=== PATIENT | female | born 1940 | race Caucasian/White ===

== ENCOUNTER 2018-04-27 09:05 | Inpatient (IN) | payer OTHER ==
--- OUTSIDE RECORDS SUMMARY | 2018-04-27 09:08 | XMS REPORT ---
:1940 Author Organization eClinicalWorks Care Team Providers Name Role Phone Felix, Na Provider Role Unavailable Allergies, Adverse Reactions, Alerts Substance Reaction Event Type penicillin rash Drug Allergy Problems Problem Type Condition Code Onset Dates Condition Status Problem Hypokalemia E87.6 Active Problem Anxiety F41.9 Active Problem Hyperlipidemia, unspecified E78.5 Active Problem Supplemental oxygen dependent Z99.81 Active Problem Ventral hernia K43.9 Active Problem Unsteady gait R26.81 Active Problem Nicotine dependence F17.200 Active Problem Hypertension I10 Active Problem Chronic obstructive pulmonary J44.9 Active disease, unspecified Problem Acute diarrhea R19.7 Active Assessment Unsteady gait R26.81 Active Assessment Collagenous colitis K52.831 Active Assessment Influenza vaccine administered Z23 Active Assessment Supplemental oxygen dependent Z99.81 Active Assessment Hyperlipidemia, unspecified E78.5 Active Assessment Hypertension I10 Active Assessment Anxiety F41.9 Active Assessment Chronic obstructive pulmonary J44.9 Active disease, unspecified Problem Collagenous colitis K52.831 Active Medications Medication Code Code Instructions Start End Status Dosage System Date Date Paroxetine HCl [facility] 36121909717 20 MG Orally Active 1 tablet Once a day in the morning Tricor [facility] 91794313078 145 MG Orally Active 1 tablet Once a day with food Symbicort [facility] 50877119408 160-4.5 MCG/ACT Sept Active 2 puffs Inhalation 27, Twice a day 2018 Paxil [facility] 50678101786 20 MG Orally Cathy Active 1 tablet Once a day 09, in the 2018 morning Combivent [facility] 54674454923 20MCG /100 MCG Sept Active 1 puff Respimat Oral Inhalation 27, 4 times daily, 2018 not to exceed 6 in 24 hrs Lomotil [facility] [address]-32 0.025-2.5 Active 5 ml as MG/5ML Orally needed Four times a day Clonidine HCl [facility] 31866465515 0.1 MG Orally Active 1 tablet twice a day as needed if BP > 160/90 Cholestyramine [facility] 10023820009 4 GM/DOSE Active 1 packet Orally Twice a mixed with day water or non-carbon ated drink Symbicort [facility] 86137418421 160-4.5 MCG/ACT Active TAKE 2 PUFFS BY MOUTH TWICE A DAY Zetia [facility] 45149398510 10 MG Orally Active 1 tablet Once a day Amlodipine [facility] 43751451903 10/40MG orally Active TAKE 1 Besy-Benazepril once a day CAPSULE HCl DAILY Metoprolol [facility] 70895835591 200 MG Active TAKE 1 Succinate ER TABLET DAILY Paroxetine HCl [facility] 73530505350 20 MG Orally July 08, Active 1 tablet Once a day 2017 in the morning Restasis [facility] 42686004222 0.05 % Active 1 drop Ophthalmic into Twice a day affected eye Toprol XL [facility] [address]-98 200 MG Orally Active 1 tablet Once a day Results No Known Results Immunizations Vaccine Administration Date FluAD Dec 02, 2017 Summary Purpose eClinicalWorks Submission
--- OUTSIDE RECORDS SUMMARY | 2018-04-27 09:08 | XMS REPORT ---
:1940 Author Organization [employer]Works Care Team Providers Name Role Phone Felix, Na Provider Role Unavailable Allergies No Known Allergies Problems Problem Type Condition Code Onset Dates Condition Status Problem Hypokalemia E87.6 Active Problem Anxiety F41.9 Active Problem Hyperlipidemia, unspecified E78.5 Active Problem Supplemental oxygen dependent Z99.81 Active Problem Ventral hernia K43.9 Active Problem Unsteady gait R26.81 Active Problem Nicotine dependence F17.200 Active Problem Hypertension I10 Active Problem Chronic obstructive pulmonary J44.9 Active disease, unspecified Problem Acute diarrhea R19.7 Active Assessment Anxiety F41.9 Active Assessment Chronic obstructive pulmonary J44.9 Active disease, unspecified Problem Collagenous colitis K52.831 Active Medications Medication Code Code Instructions Start End Status Dosage System Date Date Combivent [facility] 90111360150 20MCG /100 MCG Sept Active 1 puff Respimat Oral Inhalation 27, 4 times daily, 2018 not to exceed 6 in [address] [facility] 77638142680 160-4.5 MCG/ACT Sept Active 2 puffs Inhalation Twice 27, a day [address] [facility] 91702020664 20 MG Orally Active 1 tablet Once a day in the morning Results No Known Results Summary Purpose eClinicalWorks Submission
--- OUTSIDE RECORDS SUMMARY | 2018-04-27 09:08 | XMS REPORT ---
:1940 Author Organization [employer]Works Care Team Providers Name Role Phone Felix, Na Provider Role Unavailable Allergies No Known Allergies Problems Problem Type Condition Code Onset Dates Condition Status Problem Hypokalemia E87.6 Active Problem Anxiety F41.9 Active Problem Hyperlipidemia, unspecified E78.5 Active Problem Collagenous colitis K52.831 Active Problem Supplemental oxygen dependent Z99.81 Active Problem Ventral hernia K43.9 Active Problem Unsteady gait R26.81 Active Problem Nicotine dependence F17.200 Active Problem Hypertension I10 Active Problem Chronic obstructive pulmonary J44.9 Active disease, unspecified Problem Acute diarrhea R19.7 Active Medications No Known Medications Results No Known Results Summary Purpose eClinicalWorks Submission
[2018-04-27] MEDS ORDERED: METHYLPREDNISOLONE 125 MG INJ ONE (09:44)
[2018-04-27] MEDS ORDERED: ALBUTEROL 2.5 MG/3 ML NEB SOL ONE (09:44)
[2018-04-27] MEDS ORDERED: IPRATROPIUM BROM 0.5MG/2.5ML ONE (09:44)
[2018-04-27] MEDS ORDERED: FAMOTIDINE 20 MG/2 ML VIAL IV ONE (09:45)
[2018-04-27] MEDS ORDERED: CEFTRIAXONE/SWI 1gm 1 GM/10 ML SYR ONE (09:45)
[2018-04-27 09:58] LABS: Absolute Lymphocytes (CBC) 1.2 K/uL (0.7-4.9); Absolute Monocytes 0.9 K/uL (0.1-1.3); Absolute Neutrophil 3.7 K/uL (1.8-8.0); Basophils % 0.7 % (0-1.3); Hematocrit 45.1 % (36.0-45.0); Lymphocytes % 20.1 % (15.3-44.8); MPV 9.3 fL (7.6-11.3); Monocytes % 15.1 % (3.3-12.3); RBC Red Blood Cell Count 4.49 M/uL (3.86-4.86)
[2018-04-27] MEDS ORDERED: AZITHROMYCIN IV 500 MG in NA CHLORIDE 0.9% 250 ML IVPB ONE (10:15)
[2018-04-27 10:17] LABS: Protime INR 0.95
[2018-04-27 10:56] LABS: Urine Blood TRACE (NEG); Urine Glucose NEGATIVE (NEG); Urine Protein 2+ (NEG); Urine Specific Gravity >1.030 (1.005-1.030); Urine pH 5.5 (5.0-7.0)
--- NOTE | 2018-04-27 10:58 | RAD REPORT ---
EXAM DESCRIPTION: RAD - Chest Single View - 04/27/2018 10:27 am CLINICAL HISTORY: COPD;Cough Chest pain. COMPARISON: CHEST PA AND LAT 2 VIEW dated 05/20/2012; CHEST PA AND LAT 2 VIEW dated 09/24/2007; CHEST PA AND LAT 2 VIEW dated 07/10/2005 FINDINGS: Portable technique limits examination quality. Bilateral interstitial markings are prominent which can be seen in a viral pneumonitis or chronic bro nchitis. Underlying emphysematous changes are suspected. No focal consolidation typical of pneumonia. The heart is normal in size. No displaced fractures.
--- NOTE | 2018-04-27 11:17 | ER ---
Nurse's Notes [facility] Name: Cristel Greene Age: 78 yrs Sex: Female : 1940 Arrival Date: 04/27/2018 Time: 09:06 Bed 16 Private MD: Judith Felix Diagnosis: Chronic obstructive pulmonary disease with (acute) exacerbation;Hypoxemia;Tobacco use;Tobacco abuse counseling Presentation: 04/27 09:16 Presenting complaint: Patient states: SOB X 5 days, +cough, hx of COPD, also feeling iw weak and shaky. Transition of care: patient was not received from another setting of care. Onset of symptoms was April 22, 2018. Risk Assessment: Do you want to hurt yourself or someone else? Patient reports no desire to harm self or others. Initial Sepsis Screen: Does the patient meet any 2 criteria? RR > 20 per min. Does the patient have a suspected source of infection? No. Patient's initial sepsis screen is negative. Care prior to arrival: None. 09:16 Method Of Arrival: Wheelchair iw 09:16 Acuity: QEUTA 2 iw Historical: - Allergies: 09:22 Sulfa (Sulfonamide Antibiotics); iw 09:22 PENICILLINS; iw - Home Meds: 09:20 paroxetine HCl 20 mg oral tab 1 tab once daily [Active]; amlodipine 10 mg tab 1 tab iw once daily [Active]; benazepril 40 mg oral tab 1 tab once daily [Active]; Symbicort 160-4.5 mcg/actuation inhalation HFAA 2 puffs 2 times per day [Active]; Combivent 18-103 mcg/actuation Inhl aero 2 puffs 4 times per day [Active]; metoprolol succinate 200 mg oral Tb24 1 tab once daily [Active]; Cholestyramine Light oral oral daily [Active]; - PMHx: 09:20 COPD; Hypertension; iw - PSHx: 09:20 None; iw - Immunization history:: Adult Immunizations up to date. - Social history:: Smoking status: Patient uses tobacco products, smokes one-half pack cigarettes per day. - Ebola Screening: : Patient negative for fever greater than or equal to 101.5 degrees Fahrenheit, and additional compatible Ebola Virus Disease symptoms Patient denies exposure to infectious person Patient denies travel to an Ebola-affected area in the 21 days before illness onset No symptoms or risks identified at this time. - Family history:: not pertinent. Screenin:45 Abuse screen: Denies threats or abuse. Denies injuries from another. Nutritional jl7 screening: No deficits noted. Tuberculosis screening: No symptoms or risk factors identified. Fall Risk IV access (20 points). Total Pepper Fall Scale indicates No Risk (0-24 pts). Assessment: 09:20 General: Appears in no apparent distress. uncomfortable, Behavior is calm, cooperative, jl7 appropriate for age. Pain: Denies pain. Neuro: Level of Consciousness is awake, alert, obeys commands, Oriented to person, place, time, situation. Cardiovascular: Denies chest pain, Patient's skin is warm and dry. Rhythm is sinus rhythm Chest pain is denied. Respiratory: Respiratory: Airway is patent Respiratory effort is even, labored, shallow, using tripod position, Respiratory pattern is symmetrical, tachypnea Breath sounds are diminished bilaterally. Breath sounds with wheezes bilaterally. GI: No signs and/or symptoms were reported involving the gastrointestinal system. : Reports urinary frequency, Denies burning with urination. EENT: No signs and/or symptoms were reported regarding the EENT system. Derm: Skin is pink, warm \T\ dry. Musculoskeletal: No signs and/or symptoms reported regarding the musculoskeletal system. 10:00 Reassessment: Patient appears in no apparent distress at this time. Patient and/or jl7 family updated on plan of care and expected duration. Pain level reassessed. Patient is alert, oriented x 3, equal unlabored respirations, skin warm/dry/pink. 11:08 Reassessment: Dr Strange at bedside discussing plan of care. jl7 12:00 Reassessment: Patient appears in no apparent distress at this time. No changes from jl7 previously documented assessment. Patient and/or family updated on plan of care and expected duration. Pain level reassessed. Patient is alert, oriented x 3, equal unlabored respirations, skin warm/dry/pink. Vital Signs: 09:21 BP 167 / 77; Pulse 82; Resp 26 S; Temp 98.2(O); Pulse Ox 57% on R/A; Weight 55.79 kg; iw Height 5 ft. 5 in. (165.10 cm); Pain 0/10; 09:22 Pulse Ox 95% on 4 lpm NC; iw 09:30 BP 160 / 69; Pulse 77; Resp 31; Pulse Ox 97% on 4 lpm NC; jl7 09:45 BP 160 / 69; Pulse 77; Resp 29; Pulse Ox 100% on Nebulizer Mask; jl7 10:31 BP 166 / 84; Pulse 90; Resp 21 S; Pulse Ox 95% on 2 lpm NC; jl7 11:30 BP 135 / 60; Pulse 76; Resp 22 S; Pulse Ox 93% on 2 lpm NC; jl7 12:30 BP 140 / 70; Pulse 75; Resp 23; Pulse Ox 93% on 2 lpm NC; jl7 09:21 Body Mass Index 20.47 (55.79 kg, 165.10 cm) iw ED Course: 09:06 Patient arrived in ED. rg4 09:06 Judith Felix MD is Private Physician. rg4 09:12 Daniele Davies RN is Primary Nurse. jl7 09:17 Dino Strange MD is Attending Physician. butch 09:17 Triage completed. iw 09:20 Initial lab(s) drawn, by ED staff, sent to lab. by Daniele Davies RN. Inserted saline dh3 lock: 20 gauge in left forearm, using aseptic technique. Blood collected. 09:20 First set of blood cultures drawn by ED staff. dh3 09:20 Patient has correct armband on for positive identification. Placed in gown. Bed in low jl7 position. Call light in reach. Side rails up X2. potline monitor on. Pulse ox on. NIBP on. Warm blanket given. 09:20 Arm band placed on right wrist. jl7 09:37 Flu and/or RSV swab sent to lab. lactate drawn by [facility] and sent to lab. dh3 09:40 Second set of blood cultures drawn by ED staff. dh3 10:05 Straight cath inserted, using sterile technique, 15Fr Returned 15cc. Patient tolerated dh3 well. 10:27 XRAY Chest (1 view) In Process Unspecified. EDMS 10:51 Urine Culture Sent. sv 11:15 Leslie Kenny MD is Hospitalizing Provider. butch 11:21 Mishel Garcia MD is Hospitalizing Provider. butch 12:46 No provider procedures requiring assistance completed. Patient admitted, IV remains in jl7 place. intact, No redness/swelling at site. Administered Medications: 09:30 Drug: Albuterol - atroVENT (3:1) (2.5 mg - 0.5 mg) 3 ml Route: Nebulizer; jl7 10:24 Follow up: Response: No adverse reaction 7 09:30 Drug: Pepcid 20 mg Route: IVP; Site: left forearm; jl7 10:24 Follow up: Response: No adverse reaction jl7 09:31 Drug: SOLU-Medrol 125 mg Route: IVP; Site: left forearm; jl7 10:23 Follow up: Response: No adverse reaction jl7 09:35 Drug: Rocephin 1 grams Route: IV; Rate: bolus; Site: left forearm; jl7 09:38 Follow up: Response: No adverse reaction; IV Status: Completed infusion jl7 10:00 Not Given (Duplicate Order): Rocephin - (cefTRIAXone) 1 grams IVPB once over 30 mins; jl7 (mix in 50 mL NS) 10:23 Drug: Zithromax 500 mg Route: IVPB; Infused Over: 1 hrs; Site: left forearm; jl7 11:23 Follow up: Response: No adverse reaction; IV Status: Completed infusion jl7 Outcome: 11:17 Decision to Hospitalize by Provider. butch 12:45 Admitted to Tele accompanied by tech, family with patient, via stretcher, room 419, jl7 with chart, Report called to ARNAUD Mark 12:45 Condition: stable 12:45 Discharge instructions given to patient, family, Instructed on the need for admit, Demonstrated understanding of instructions. 12:47 Patient left the ED. jl7 Signatures: Dispatcher [employer] EDJulia Rubio RN RN sv Anderson, Corey, MD MD cha Williams, Irene, RN RN iw Garcia, Rubi 4 Daniele Davies RN RN jl7 Natalie Burris 3 Corrections: (The following items were deleted from the chart) 09:22 09:20 Allergies: No Known Allergies; [facility] 10:00 09:30 Pepcid 20 mg IVP in right forearm jl7 jl7
--- NOTE | 2018-04-27 11:18 | EDPHYS ---
Physician Documentation [facility] Name: Cristel Greene Age: 78 yrs Sex: Female : 1940 Arrival Date: 04/27/2018 Time: 09:06 Bed 16 Private MD: Judith Felix ED Physician Dino Strange HPI: 04/27 11:11 This 78 yrs old Female presents to ER via Wheelchair with complaints of butch Breathing Difficulty. 11:11 The patient has shortness of breath with light activity. Onset: The symptoms/episode butch began/occurred 3 day(s) ago. Duration: The symptoms are continuous, and are steadily getting worse. The patient's shortness of breath is aggravated by coughing, supine position. Associated signs and symptoms: The patient has no apparent associated signs or symptoms. Severity of symptoms: At their worst the symptoms were mild in the emergency department the symptoms are unchanged. The patient has not experienced similar symptoms in the past. Historical: - Allergies: 09:22 Sulfa (Sulfonamide Antibiotics); iw 09:22 PENICILLINS; iw - Home Meds: 09:20 paroxetine HCl 20 mg oral tab 1 tab once daily [Active]; amlodipine 10 mg tab 1 tab iw once daily [Active]; benazepril 40 mg oral tab 1 tab once daily [Active]; Symbicort 160-4.5 mcg/actuation inhalation HFAA 2 puffs 2 times per day [Active]; Combivent 18-103 mcg/actuation Inhl aero 2 puffs 4 times per day [Active]; metoprolol succinate 200 mg oral Tb24 1 tab once daily [Active]; Cholestyramine Light oral oral daily [Active]; - PMHx: 09:20 COPD; Hypertension; iw - PSHx: 09:20 None; iw - Immunization history:: Adult Immunizations up to date. - Social history:: Smoking status: Patient uses tobacco products, smokes one-half pack cigarettes per day. - Ebola Screening: : Patient negative for fever greater than or equal to 101.5 degrees Fahrenheit, and additional compatible Ebola Virus Disease symptoms Patient denies exposure to infectious person Patient denies travel to an Ebola-affected area in the 21 days before illness onset No symptoms or risks identified at this time. - Family history:: not pertinent. ROS: 11:11 Constitutional: Negative for fever, chills, and weight loss, Eyes: Negative for injury, butch pain, redness, and discharge, ENT: Negative for injury, pain, and discharge, Neck: Negative for injury, pain, and swelling, Cardiovascular: Negative for chest pain, palpitations, and edema, Abdomen/GI: Negative for abdominal pain, nausea, vomiting, diarrhea, and constipation, Back: Negative for injury and pain, : Negative for injury, bleeding, discharge, and swelling, MS/Extremity: Negative for injury and deformity, Skin: Negative for injury, rash, and discoloration, Neuro: Negative for headache, weakness, numbness, tingling, and seizure, Psych: Negative for depression, anxiety, suicide ideation, homicidal ideation, and hallucinations, Allergy/Immunology: Negative for hives, rash, and allergies, Endocrine: Negative for neck swelling, polydipsia, polyuria, polyphagia, and marked weight changes, Hematologic/Lymphatic: Negative for swollen nodes, abnormal bleeding, and unusual bruising. 11:11 Respiratory: Positive for cough, shortness of breath, wheezing, inspiratory, expiratory. Exam: 11:11 Constitutional: This is a well developed, well nourished patient who is awake, alert, butch and in no acute distress. Head/Face: Normocephalic, atraumatic. Eyes: Pupils equal round and reactive to light, extra-ocular motions intact. Lids and lashes normal. Conjunctiva and sclera are non-icteric and not injected. Cornea within normal limits. Periorbital areas with no swelling, redness, or edema. ENT: Nares patent. No nasal discharge, no septal abnormalities noted. Tympanic membranes are normal and external auditory canals are clear. Oropharynx with no redness, swelling, or masses, exudates, or evidence of obstruction, uvula midline. Mucous membranes moist. Neck: Trachea midline, no thyromegaly or masses palpated, and no cervical lymphadenopathy. Supple, full range of motion without nuchal rigidity, or vertebral point tenderness. No Meningismus. Chest/axilla: Normal chest wall appearance and motion. Nontender with no deformity. No lesions are appreciated. Cardiovascular: Regular rate and rhythm with a normal S1 and S2. No gallops, murmurs, or rubs. Normal PMI, no JVD. No pulse deficits. Abdomen/GI: Soft, non-tender, with normal bowel sounds. No distension or tympany. No guarding or rebound. No evidence of tenderness throughout. Back: No spinal tenderness. No costovertebral tenderness. Full range of motion. Female : Normal external genitalia. Skin: Warm, dry with normal turgor. Normal color with no rashes, no lesions, and no evidence of cellulitis. MS/ Extremity: Pulses equal, no cyanosis. Neurovascular intact. Full, normal range of motion. Neuro: Awake and alert, GCS 15, oriented to person, place, time, and situation. Cranial nerves II-XII grossly intact. Motor strength 5/5 in all extremities. Sensory grossly intact. Cerebellar exam normal. Normal gait. Psych: Awake, alert, with orientation to person, place and time. Behavior, mood, and affect are within normal limits. 11:11 Respiratory: mild respiratory distress is noted, Respirations: labored breathing, that is mild, Breath sounds: decreased breath sounds, rhonchi, stridor, is not appreciated, + upper airway congestion. wheezing: that is moderate. Vital Signs: 09:21 BP 167 / 77; Pulse 82; Resp 26 S; Temp 98.2(O); Pulse Ox 57% on R/A; Weight 55.79 kg; iw Height 5 ft. 5 in. (165.10 cm); Pain 0/10; 09:22 Pulse Ox 95% on 4 lpm NC; iw 09:30 BP 160 / 69; Pulse 77; Resp 31; Pulse Ox 97% on 4 lpm NC; jl7 09:45 BP 160 / 69; Pulse 77; Resp 29; Pulse Ox 100% on Nebulizer Mask; jl7 10:31 BP 166 / 84; Pulse 90; Resp 21 S; Pulse Ox 95% on 2 lpm NC; jl7 11:30 BP 135 / 60; Pulse 76; Resp 22 S; Pulse Ox 93% on 2 lpm NC; jl7 12:30 BP 140 / 70; Pulse 75; Resp 23; Pulse Ox 93% on 2 lpm NC; jl7 09:21 Body Mass Index 20.47 (55.79 kg, 165.10 cm) MDM: 09:17 Patient medically screened. [facility] 11:11 Data reviewed: vital signs, nurses notes, lab test result(s), EKG, radiologic studies, [facility] plain films. 04/27 09:25 Order name: Basic Metabolic Panel [facility] 04/27 09:25 Order name: CBC with Diff [facility] 04/27 09:25 Order name: LFT's [facility] 04/27 09:25 Order name: Magnesium [facility] 04/27 09:25 Order name: NT PRO-BNP [facility] 04/27 09:25 Order name: PT-INR; Complete Time: 11:03 [facility] 04/27 09:25 Order name: Troponin (emerg Dept Use Only) [facility] 04/27 09:25 Order name: Blood Culture Adult (2) [facility] 04/27 09:25 Order name: Procalcitonin [facility] 04/27 09:25 Order name: Lactate; Complete Time: 11:03 [facility] 04/27 09:25 Order name: Influenza Screen (a \T\ B); Complete Time: 11:03 [facility] 04/27 10:21 Order name: Urine Culture 3 04/27 10:22 Order name: Urine Culture EDND 04/27 10:24 Order name: Urine Dipstick--Ancillary (enter results); Complete Time: 11:03 04/27 09:25 Order name: XRAY Chest (1 view); Complete Time: 11:03 [facility] 04/27 09:25 Order name: EKG; Complete Time: 09:27 [facility] 04/27 09:25 Order name: Cardiac monitoring; Complete Time: 09:46 [facility] 04/27 09:25 Order name: EKG - Nurse/Tech; Complete Time: 09:46 [facility] 04/27 09:25 Order name: IV Saline Lock; Complete Time: 09:46 [facility] 04/27 09:25 Order name: Labs collected and sent; Complete Time: 09:46 [facility] 04/27 09:25 Order name: O2 Per Protocol; Complete Time: 09:46 [facility] 04/27 09:25 Order name: O2 Sat Monitoring; Complete Time: 09:46 [facility] 04/27 11:40 Order name: CBC Smear Scan EDMS Administered Medications: 09:30 Drug: Albuterol - atroVENT (3:1) (2.5 mg - 0.5 mg) 3 ml Route: Nebulizer; jl7 10:24 Follow up: Response: No adverse reaction 7 09:30 Drug: Pepcid 20 mg Route: IVP; Site: left forearm; jl7 10:24 Follow up: Response: No adverse reaction 7 09:31 Drug: SOLU-Medrol 125 mg Route: IVP; Site: left forearm; jl7 10:23 Follow up: Response: No adverse reaction jl7 09:35 Drug: Rocephin 1 grams Route: IV; Rate: bolus; Site: left forearm; jl7 09:38 Follow up: Response: No adverse reaction; IV Status: Completed infusion jl7 10:00 Not Given (Duplicate Order): Rocephin - (cefTRIAXone) 1 grams IVPB once over 30 mins; jl7 (mix in 50 mL NS) 10:23 Drug: Zithromax 500 mg Route: IVPB; Infused Over: 1 hrs; Site: left forearm; jl7 11:23 Follow up: Response: No adverse reaction; IV Status: Completed infusion jl7 Disposition: 04/27/18 11:17 Hospitalization ordered by Mishel Garcia for Inpatient Admission. Preliminary diagnosis are Chronic obstructive pulmonary disease with (acute) exacerbation, Hypoxemia, Tobacco use, Tobacco abuse counseling. - Bed requested for Telemetry/MedSurg (Inpatient). - Status is Inpatient Admission. jl7 - Condition is Fair. - Problem is new. - Symptoms have improved. UTI on Admission? No Signatures: Dispatcher [employer] EDMS Mandie Gan Corey, MD MD cha Williams, Irene, RN RN Daniele Davies RN RN jl7 Corrections: (The following items were deleted from the chart) 09:22 09:20 Allergies: No Known Allergies; [facility] 11:21 11:17 Hospitalization Ordered by Leslie Kenny MD for Inpatient Admission. Preliminary butch diagnosis is Chronic obstructive pulmonary disease with (acute) exacerbation; Hypoxemia; Tobacco use; Tobacco abuse counseling. Bed requested for Telemetry/MedSurg (Inpatient). Status is Inpatient Admission. Condition is Fair. Problem is new. Symptoms have improved. UTI on Admission? No. butch 12:06 11:21 04/27/2018 11:17 Hospitalization Ordered by Mishel Garcia MD for Inpatient bd Admission. Preliminary diagnosis is Chronic obstructive pulmonary disease with (acute) exacerbation; Hypoxemia; Tobacco use; Tobacco abuse counseling. Bed requested for Telemetry/MedSurg (Inpatient). Status is Inpatient Admission. Condition is Fair. Problem is new. Symptoms have improved. UTI on Admission? No. butch 12:47 12:06 04/27/2018 11:17 Hospitalization Ordered by Mishel Garcia MD for Inpatient jl7 Admission. Preliminary diagnosis is Chronic obstructive pulmonary disease with (acute) exacerbation; Hypoxemia; Tobacco use; Tobacco abuse counseling. Bed requested for Telemetry/MedSurg (Inpatient). Status is Inpatient Admission. Condition is Fair. Problem is new. Symptoms have improved. UTI on Admission? No. bd
[2018-04-27 11:46] LABS: Blood Morphology Comment NOT SEEN (NOT SEEN); Platelet Estimate ADEQ; Urine White Blood Cell Casts OK
[2018-04-27 11:52] LABS: ALT/SGPT 27 U/L (12-78); AST/SGOT 29 U/L (15-37); Albumin 3.4 g/dL (3.4-5.0); Alkaline Phosphatase 98 U/L (45-117); BUN Blood Urea Nitrogen 19 mg/dL (7-18); Bicarbonate 32 mmol/L (21-32); Bilirubin Direct < 0.1 mg/dL (0-0.2); Bilirubin Total 0.4 mg/dL (0.2-1.0); Glucose Level 158 mg/dL (74-106); Magnesium 1.8 mg/dL (1.8-2.4); NT PRO-BNP 325 pg/mL (<450); Potassium 3.8 mmol/L (3.5-5.1); Protein, Total 7.5 g/dL (6.4-8.2); Sodium Level 138 mmol/L (136-145); Troponin (Emerg Dept Use Only) < 0.02 ng/mL (0.0-0.045)
[2018-04-27] MEDS ORDERED: ONDANSETRON 4 MG/2 ML VIAL IV PRN (13:01)
[2018-04-27] MEDS ORDERED: ACETAMINOPHEN 500 MG TAB PO PRN (13:01)
[2018-04-27] MEDS: ALBUTEROL 2.5 MG/3 ML NEB SOL NEB SCH ×2 (14:17→20:20)
[2018-04-27] MEDS: IPRATROPIUM BROM 0.5MG/2.5ML NEB SCH ×2 (14:17→20:20)
[2018-04-27] MEDS ORDERED: LORazepam 2 MG/ML VIAL IV PRN (16:49)
[2018-04-27] MEDS: METHYLPREDNISOLONE 40 MG INJ IV SCH (17:33)
[2018-04-27] MEDS: ENOXAPARIN 40 MG/0.4 ML SQ SCH (17:33)
--- NOTE | 2018-04-27 18:40 | EKG ---
Test Date: 2018-04-27 Test Time: 09:37:15 Chef Broiler Or Fry: RYAN MEASUREMENT RESULTS: Intervals: Rate: 77 AR: 148 QRSD: 70 QT: 388 QTc: 439 Smoot: P: 63 AR: 148 QRS: 76 T: 76 INTERPRETIVE STATEMENTS: Normal sinus rhythm Nonspecific ST abnormality Abnormal ECG Compared to ECG 08/13/2012 11:14:14 ST (T wave) deviation now present Electronically Signed On 04-27-18 18:39:45 [employer] by Johnson Duran
[2018-04-28] MEDS: METHYLPREDNISOLONE 40 MG INJ IV SCH ×3 (01:13→17:46)
[2018-04-28] MEDS: ALBUTEROL 2.5 MG/3 ML NEB SOL NEB SCH ×4 (01:50→21:32)
[2018-04-28] MEDS: IPRATROPIUM BROM 0.5MG/2.5ML NEB SCH ×4 (01:50→19:40)
--- NOTE | 2018-04-28 03:27 | HP ---
Date of Admission: 04/27/2018 Chief Complaint: Shortness of breath. Code Status: Full code. Sister is the medical power of corporate attorney. History Of Present Illness: The patient is a 78-year-old female who has a past medical history of [place] PD, on home oxygen, who continues to smoke about 5 cigarettes per day, depression, hypertension, who was in her usual state of health until the day prior to admission when the patient had worsening symp toms of shortness of breath. The patient states her shortness of breath has gotten worse over the st couple of days, more than her usual. The patient denies any significant amount of cough. No sput um production. No fevers or chills. No ill contacts. The patient does have a history of fibrotic l ying disease as well. Came to the ER. Her symptoms were constant, moderate, progressively worsening, found to be hypoxic. She was started on breathing treatments and was started on supplemental oxygen . The patient's workup revealed normal white blood cell count. Procalcitonin was negative. Her inf luenza screen was also negative. The patient was then referred for admission. When seen in the ER, she was awake, alert, oriented x3, in some mild respiratory distress. Past Medical History: Hypertension, generalized anxiety disorder, major depressive disorder, COPD, a nd fibrotic lung disease. Past Surgical History: None. Allergies: TO PENICILLIN AND SULFA. Medications: List reviewed. Social History: The patient smokes 5 cigarettes per day. Used to smoke half a pack per day for over 30 years. The patient does drink several glasses of wine daily. Family History: Mom's side has heart problems. No other specifics were given even despite elicitati on. Review of Systems: An 11-point system reviewed and negative except as per HPI. Physical Examination: Vital Signs: Temperature 98.2, heart rate 82, blood pressure 167/77, respirations 26, and O2 of 57% on room air, improved to 95% on 4 L. General: Awake, alert, oriented x3. Elderly female, in mild respiratory distress. Frail, cachectic . BMI 20. HEENT: Normocephalic, atraumatic. PERRLA. EOMI. Dry mucous membranes. Oropharynx is clear. Conj unctivae are anicteric. Neck: Supple. No JVD. Trachea midline. CV: S1, S2. Regular rate and rhythm. Peripheral pulses are present. Respiratory: Diminished breath sounds. Wheezing is heard throughout. The patient is tachypneic wit h use of accessory muscles. Gastrointestinal: Abdomen is soft, nontender, and nondistended. Positive bowel sounds. No guarding or rigidity. Extremities: No clubbing, cyanosis, or edema. No calf tenderness. Neurologic: Cranial nerves 2 through 12 are intact grossly. No focal neurological deficit. Speech is normal, and sensation is intact to light touch. Skin: No rashes. Normal skin turgor. Psychiatric: Mood is anxious. Affect is congruent with mood. Insight and judgment are fair. Laboratory Data: Sodium 138, potassium 3.8, chloride 99, CO2 of 32, BUN 19, creatinine 0.64, glucose 158, lactate 1.1, calcium 8.7, and magnesium 1.8. Troponin less than 0.02. Procalcitonin 0.05. IN R 0.95. WBC 6.2, H and H 15 and 45.1, platelets 237, and neutrophils 60%. UA negative. Influenza s creen negative. Chest x-ray, personally reviewed, shows bilateral interstitial markings, prominent, which can be seen in a viral pneumonitis or chronic bronchitis. Underlying emphysematous changes are suspected. No focal consolidations typical of pneumonia. Heart normal in size. No displaced fract ures. Assessment And Plan: A 78-year-old female with; 1.Acute chronic obstructive pulmonary disease exacerbation. We will continue with IV steroids and b reathing treatments around the clock as well as prophylactic antibiotics for bronchitis. 2.Chronic respiratory failure. The patient is on supplemental oxygen with hypoxia. 3.Fibrotic lung disease. 4.Essential hypertension. Resume home medications as appropriate. 5.Generalized anxiety disorder. We will continue home medications as appropriate. 6.Nicotine dependence with cigarette smoking, continuous. The patient has been counseled. 7.Alcohol dependence. The patient drinks wine daily. We will start on multivitamins and Ativan p.r .n. for alcohol withdrawal. 8.Deep vein thrombosis prophylaxis with Lovenox. Plan: Admit the patient to Med-Surg, place as inpatient. Length of stay; greater than 2 midnights. We will have PT evaluation done as the patient did state that she feels wobbly on her feet. No rece nt falls. SA/MODL Voice ID: [id number]
[2018-04-28 06:11] LABS: Absolute Lymphocytes (CBC) 0.6 K/uL (0.7-4.9); Absolute Monocytes 0.3 K/uL (0.1-1.3); Absolute Neutrophil 1.9 K/uL (1.8-8.0); Basophils % 0.2 % (0-1.3); MPV 9.5 fL (7.6-11.3); RBC Red Blood Cell Count 4.13 M/uL (3.86-4.86)
[2018-04-28 06:21] LABS: BUN Blood Urea Nitrogen 17 mg/dL (7-18); Bicarbonate 33 mmol/L (21-32); Glucose Level 175 mg/dL (74-106); Magnesium 1.9 mg/dL (1.8-2.4); Potassium 3.9 mmol/L (3.5-5.1); Sodium Level 138 mmol/L (136-145)
[2018-04-28 08:25] LABS: Blood Morphology Comment NOT SEEN (NOT SEEN); Platelet Estimate ADEQ
[2018-04-28] MEDS ORDERED: AMLODIPINE BESYLATE PO SCH (09:00)
[2018-04-28] MEDS ORDERED: POTASSIUM 25 MEQ EFFERV TAB PO ONE (09:00)
[2018-04-28] MEDS ORDERED: HOME MED 1 EA UNK (Paroxetine Hcl [Paroxetine Hcl] 20 MG) PO SCH (09:00)
[2018-04-28] MEDS ORDERED: BENAZEPRIL PO SCH (09:00)
[2018-04-28] MEDS ORDERED: Budesonide/Formoterol Fumarate (Symbicort) 160-4.5 Mcg Inhaler IH SCH (09:00)
[2018-04-28] MEDS ORDERED: [UNRECOGNIZED DRUG - OTHER] PO SCH (09:00)
[2018-04-28] MEDS ORDERED: AZITHROMYCIN IV 500 MG in NA CHLORIDE 0.9% 250 ML IVPB SCH (09:00)
[2018-04-28] MEDS ORDERED: HOME MED 1 EA UNK (Metoprolol Succinate [Toprol Xl] 200 MG) PO SCH (09:00)
[2018-04-28] MEDS: PARoxetine HCl 10 MG TAB PO SCH (11:32)
[2018-04-28] MEDS: FOLIC ACID 1 MG TABLET PO SCH (11:32)
[2018-04-28] MEDS: METOPROLOL XL 100 MG TAB PO SCH (11:32)
[2018-04-28] MEDS: AMLODIPINE 10 MG TAB PO SCH (11:33)
[2018-04-28] MEDS: THIAMINE HCL 100 MG TABLET PO SCH (11:33)
[2018-04-28] MEDS: BENAZEPRIL 20 MG TAB PO SCH (11:37)
[2018-04-28] MEDS: ENOXAPARIN 40 MG/0.4 ML SQ SCH (17:45)
--- NOTE | 2018-04-28 18:44 | P.PN ---
Subjective Date of Service: 04/28/18 Subjective: No C/O voiced, Improving Patient seen and examined at bedside. No family at bedside. Chart reviewed and case discussed with nursing staff. Review of Systems 10-point ROS is otherwise unremarkable Physical Examination - Vital Signs Temperature: 98.1 F Blood Pressure: 152/71 Pulse: 82 Respirations: 20 Pulse Ox (%): 95 - Physical Exam General: Alert, In no apparent distress, Oriented x3 HEENT: Atraumatic, PERRLA, EOMI Neck: Supple, JVD not distended Respiratory: Crackles/rales, Expiratory wheezes, Inspiratory wheezes Cardiovascular: Regular rate/rhythm, Normal S1 S2 Gastrointestinal: Normal bowel sounds, No tenderness Musculoskeletal: No tenderness Integumentary: No rashes Neurological: Normal speech, Normal tone, Normal affect Lymphatics: No axilla or inguinal lymphadenopathy Assessment And Plan - Plan A 78-year-old female with; Acute chronic obstructive pulmonary disease exacerbation. We will continue with IV steroids and breathing treatments around the clock as well as prophylactic antibiotics for bronchitis. Chronic respiratory failure. The patient is on supplemental oxygen with hypoxia. Fibrotic lung disease. Essential hypertension. Resume home medications as appropriate. Generalized anxiety disorder. We will continue home medications as appropriate. Nicotine dependence with cigarette smoking, continuous. The patient has been counseled. Alcohol dependence. The patient drinks wine daily. We will start on multivitamins and Ativan p.r.n. for alcohol withdrawal. Deep vein thrombosis prophylaxis with Lovenox. Plan: Continue managing. Patient improving. Possible discharge home the next 24-48 hr, pending symptomatic improvement
[2018-04-29] MEDS: IPRATROPIUM BROM 0.5MG/2.5ML NEB SCH ×2 (01:20→10:16)
[2018-04-29] MEDS: ALBUTEROL 2.5 MG/3 ML NEB SOL NEB SCH ×2 (01:20→10:16)
[2018-04-29] MEDS: METHYLPREDNISOLONE 40 MG INJ IV SCH ×2 (01:35→09:10)
[2018-04-29 05:40] LABS: BUN Blood Urea Nitrogen 21 mg/dL (7-18); Bicarbonate 37 mmol/L (21-32); Glucose Level 151 mg/dL (74-106); Sodium Level 141 mmol/L (136-145)
[2018-04-29] MEDS ORDERED: AZITHROMYCIN 250 MG TAB PO SCH (09:00)
[2018-04-29] MEDS: METOPROLOL XL 100 MG TAB PO SCH (09:10)
[2018-04-29] MEDS: PARoxetine HCl 10 MG TAB PO SCH (09:11)
[2018-04-29] MEDS: BENAZEPRIL 20 MG TAB PO SCH (09:11)
[2018-04-29] MEDS: THIAMINE HCL 100 MG TABLET PO SCH (09:11)
[2018-04-29] MEDS: FOLIC ACID 1 MG TABLET PO SCH (09:11)
[2018-04-29] MEDS: AMLODIPINE 10 MG TAB PO SCH (09:12)
--- NOTE | 2018-05-01 14:43 | P.DS ---
Admission Date: 04/27/18 Discharge Date: 04/29/18 Disposition: ROUTINE DISCHARGE Discharge Condition: GOOD Reason for Admission: Acure COPD exacerbation Brief History of Present Illness: The patient is a 78-year-old female who has a past medical history of COPD, on home oxygen, who continues to smoke about 5 cigarettes per day, depression, hypertension, who was in her usual state of health until the day prior to admission when the patient had worsening symptoms of shortness of breath. The patient states her shortness of breath has gotten worse over the past couple of days, more than her usual. The patient denies any significant amount of cough. No sputum production. No fevers or chills. No ill contacts. The patient does have a history of fibrotic lung disease as well. Came to the ER. Her symptoms were constant, moderate, progressively worsening, found to be hypoxic. She was started on breathing treatments and was started on supplemental oxygen. The patient's workup revealed normal white blood cell count. Procalcitonin was negative. Her influenza screen was also negative. The patient was then referred for admission. When seen in the ER, she was awake, alert, oriented x3, in some mild respiratory distress. Hospital Course: Patient was admitted for COPD exacerbation. she was started on IV steroids, Nebs and antibiotics. She was provided with oxygen as needed. Her symptoms improved and she was then discharged home with PO steroids, PO azithromycin and instructions to follow up with Pulmonology outpatient. She remianed stable thoughtout the stay otherwise. She was counseled extensively on smoking cessation. Patient improving. Vital Signs/Physical Exam: Temp Pulse Resp BP Pulse Ox 98.1 F 73 22 H 144/72 H 96 04/29/18 12:00 04/29/18 12:04/29/18 12:00 04/29/18 12:04/29/18 12:00 General: Alert, In no apparent distress HEENT: Atraumatic, PERRLA, EOMI Neck: Supple, JVD not distended Respiratory: Clear to auscultation bilaterally, Normal air movement Cardiovascular: Regular rate/rhythm, Normal S1 S2 Gastrointestinal: Normal bowel sounds, No tenderness Musculoskeletal: No tenderness Integumentary: No rashes Neurological: Normal speech, Normal tone, Normal affect Lymphatics: No axilla or inguinal lymphadenopathy Laboratory Data at Discharge: WBC 2.8 K/uL (4.3-10.9) L D 04/28/18 05:17 Hgb 13.6 g/dL (12.0-15.0) 04/28/18 05:17 Hct 41.0 % (36.0-45.0) 04/28/18 05:17 Plt Count 218 K/uL (152-406) 04/28/18 05:17 PT 11.2 SECONDS (9.5-12.5) 04/27/18 09:20 INR 0.95 04/27/18 09:20 Sodium 141 mmol/L (136-145) 04/29/18 04:51 Potassium 4.0 mmol/L (3.5-5.1) 04/29/18 04:51 BUN 21 mg/dL (7-18) H 04/29/18 04:51 Creatinine 0.50 mg/dL (0.55-1.3) L 04/29/18 04:51 Glucose 151 mg/dL (74-106) H 04/29/18 04:51 Magnesium 2.0 mg/dL (1.8-2.4) 04/29/18 04:51 Total Bilirubin 0.4 mg/dL (0.2-1.0) 04/27/18 09:20 AST 29 U/L (15-37) 04/27/18 09:20 ALT 27 U/L (12-78) 04/27/18 09:20 Alkaline Phosphatase 98 U/L (45-117) 04/27/18 09:20 Home Medications: Amlodipine Besylate/Benazepril [Amlodipine-Benazepril 10-40 mg] 1 each PO DAILY 04/27/18 Budesonide/Formoterol Fumarate [Symbicort 160-4.5 Mcg Inhaler] 2 puff IH DAILY 04/27/18 Cholestyramine (with Sugar) [Cholestyramine Packet] 4 gm PO DAILY 04/27/18 Ipratropium/Albuterol Sulfate [Combivent Respimat 20-100 Mcg] 4 gm IH DAILY Metoprolol Succinate [Toprol Xl] 200 mg PO DAILY 04/27/18 PARoxetine HCl [Paroxetine HCl] 20 mg PO DAILY 04/27/18 Azithromycin Tab [Zithromax*] 250 mg PO DAILY #3 tab 04/29/18 predniSONE [Deltasone*] 10 mg PO BID #14 tab 04/29/18 New Medications: Azithromycin Tab [Zithromax*] 250 mg PO DAILY #3 tab predniSONE [Deltasone*] 10 mg PO BID #14 tab Patient Discharge Instructions: Please follow up with your primary care physician in 2-3 days. Please return to the Emergency room for worsening symptoms. Diet: Regular Activity: Ad sincere Followup: Rinku Kaminski MD [ACTIVE - CAN ADMIT] - 1-2 Weeks Judith Felix DO [Primary Care Provider] - Time spent managing pt's care (in minutes): 55
== END 2018-04-29 14:15 | disposition home or self-care (01) | DRG 191 ==
LOC: ER 09:05 → ERHOLD 11:39 → 4TH 12:30
PROVIDERS: ADMIT Family Medicine; ATTEND Family Medicine
DX: J44.1 Chronic obstructive pulmonary disease with (acute) exacerbation (principal); J96.11 Chronic respiratory failure with hypoxia; F17.210 Nicotine dependence, cigarettes, uncomplicated; Z88.0 Allergy status to penicillin; Z88.2 Allergy status to sulfonamides; Z99.81 Dependence on supplemental oxygen; F32.9 Major depressive disorder, single episode, unspecified; I10 Essential (primary) hypertension; F41.1 Generalized anxiety disorder; J84.10 Pulmonary fibrosis, unspecified; F10.20 Alcohol dependence, uncomplicated
CPT/HCPCS: 36415; 51702; 71045; 80048; 80076; 81003; 83605; 83735; 83880; 84145; 84484; 85025; 85610; 87040; 87086; 87088; 87804; 93005; 94640; 96365; 96375; 97116; 97163; 97530; 99285; J0456; J0696; J1650; J2920; J2930